=== PATIENT | female | born 1990 | race African-American/Black ===

== ENCOUNTER 2019-10-12 05:09 | Inpatient (IN) ==
[2019-10-12] MEDS ORDERED: ONDANSETRON 4 MG/2 ML VIAL IV PRN ×2 (05:21→08:49)
[2019-10-12] MEDS ORDERED: CITRIC ACID/SODIUM CITRATE 30 ML UDCUP PO ONE (05:24)
[2019-10-12] MEDS ORDERED: FAMOTIDINE 20 MG/2 ML VIAL IV ONE (05:24)
[2019-10-12] MEDS ORDERED: ceFAZolin 2,000 MG in PREMIX 1 EACH IV ONE (05:24)
[2019-10-12] MEDS: LACTATED RINGERS 1,000 ML IV PRN ×3 (05:40→13:24)
[2019-10-12 05:59] LABS: Basophils # 0.1 10*3/uL (0.0-0.2); Basophils % 0.6 % (0.0-0.8); Eosinophils # 0.2 10*3/uL (0.0-0.87); Eosinophils % 2.5 % (0.00-10.9); Hematocrit 29.1 VOL% (35.7-47.0); Hemoglobin 8.6 GM/DL (12.0-16.0); Immature Granulocytes Absolute 0.18 #; Lymphocytes # 3.2 10*3/uL (1.4-4.0); Lymphocytes % 35.7 % (21.3-54.2); Mean Corpuscular HGB Conc 29.6 GM/DL (32-36); Mean Corpuscular Volume 75.8 FL (87-102); Mean Platelet Volume 10.7 FL (9.6-12.0); Neutrophils % 50.2 % (38.7-73.9); Platelet Count 283 T/CUMM (130-400); Red Blood Count 3.84 MC/CUMM (3.8-5.5); Red Cell Distribution Width 18.2 % (9.3-17.3); White Blood Count 8.9 T/CUMM (4-12)
[2019-10-12 06:05] LABS: Albumin 2.5 G/DL (3.4-5.0); Bilirubin,Total 0.5 MG/DL (0.2-1.0); Calcium 9.1 MG/DL (8.5-10.1); Osmolality,Calculated 270.7 MOS/KG (273-304); Total Protein 7.6 G/DL (6.4-8.3)
[2019-10-12 06:09] LABS: Hypochromasia 2+; Platelet Estimate Adequate
[2019-10-12] MEDS ORDERED: miSOPROStoL 200 MCG TABLET ONE (07:18)
[2019-10-12] MEDS ORDERED: METHYLERGONOVINE 0.2 MG/1 ML AMP ONE (07:19)
[2019-10-12] MEDS ORDERED: OXYTOCIN/LR 20 UNIT/1,000 ML BAG IV ONE ×3 (07:19→08:49)
[2019-10-12] MEDS ORDERED: CARBOPROST TROMETHAMINE 250 MCG/ML AMP IM ONE (07:19)
[2019-10-12] MEDS ORDERED: ROPIVACAINE 0.5% 30 ML VIAL ONE (07:35)
[2019-10-12] MEDS ORDERED: PHENYLEPHRINE 1 MG/10 ML SYRINGE IV ONE (07:35)
[2019-10-12] MEDS ORDERED: MORPHINE 10 MG/10 ML VIAL ONE (07:35)
[2019-10-12] MEDS ORDERED: BUPIVACAINE SPINAL 0.75% 2 ML AMP SPINAL ONE (07:36)
[2019-10-12 08:37] LABS: Cord Arterial Blood HCO3 21.3 MMOL/L; Cord Venous Blood HCO3 21.8 MMOL/L; Cord Venous Blood PO2 37.4 MMHG
[2019-10-12 08:46] LABS: Apearance,Urine CLEAR (Clear); Bilirubin,Urine Negative (Negative); Blood, Urine Negative (Negative); Glucose,Urine (UA) Negative (Negative); Ketones,Urine Negative (Negative); Mucus,Urine Occasional /LPF (Occasional); Nitrite,Urine Negative (Negative); Protein,Urine Negative; Urine Color Straw (Yellow); Urine Specific Gravity 1.005 (1.001-1.035); Urine Urobilinogen < 2.0 EU/DL (0.2-1.0); WBC,Urine <1 /HPF (0-6)
[2019-10-12] MEDS ORDERED: DIPH/TET/ACEL PERT BOOSTER VACCINE 0.5 ML VIAL IM ONE (08:49)
[2019-10-12] MEDS ORDERED: RHO(D) IMMUNE GLOBULIN 300 MCG SYRINGE IM ONE (08:49)
[2019-10-12] MEDS ORDERED: LANOLIN 50% CREAM 0.3 OZ TUBE TOP PRN (08:49)
[2019-10-12] MEDS ORDERED: ACETAMINOPHEN 325 MG TABLET PO PRN (08:49)
[2019-10-12] MEDS ORDERED: HYDROCORTISONE 2.5% RECTAL CREAM 30 GM TUBE TOP PRN (08:49)
[2019-10-12] MEDS ORDERED: WITCH HAZEL PADS 100/JAR TOP PRN (08:49)
[2019-10-12] MEDS ORDERED: BISACODYL 10 MG SUPP RECTAL PRN (08:49)
[2019-10-12] MEDS ORDERED: oxyCODONE/ACETAMINOPHEN 5-325 MG TABLET PO PRN (08:49)
[2019-10-12] MEDS ORDERED: BENZOCAINE 20%/MENTHOL 0.5% SPRAY 56 GM CAN TOP PRN (08:49)
[2019-10-12] MEDS ORDERED: MEASLES/MUMPS/RUBELLA VACCINE 0.5 ML VIAL SUBCUT ONE (08:49)
[2019-10-12] MEDS ORDERED: fentaNYL 100 MCG/2 ML VIAL ONE (10:07)
[2019-10-12] MEDS ORDERED: DEXAMETHASONE 4 MG/1 ML VIAL ONE (10:12)
[2019-10-12] MEDS: DOCUSATE SODIUM 100 MG CAPSULE PO SCH (11:49)
[2019-10-12] MEDS: ACETAMINOPHEN 500 MG TABLET PO SCH ×3 (12:05→23:37)
[2019-10-12] MEDS: KETOROLAC 30 MG/1 ML VIAL IV SCH ×3 (12:06→23:38)
[2019-10-12] MEDS ORDERED: SODIUM CHLORIDE 0.9% 100 ML IV ONE (15:30)
[2019-10-12] MEDS: ceFAZolin 1,000 MG in SYRINGE 1 EACH IV SCH ×2 (15:45→23:40)
[2019-10-13] MEDS: DOCUSATE SODIUM 100 MG CAPSULE PO SCH ×3 (01:09→20:27)
[2019-10-13 05:41] LABS: Basophils % 0.1 % (0.0-0.8); Eosinophils % 0.1 % (0.00-10.9); Hematocrit 22.5 VOL% (35.7-47.0); Hemoglobin 6.8 GM/DL (12.0-16.0); Immature Granulocytes % 1.4 %; Immature Granulocytes Absolute 0.29 #; Lymphocytes # 2.8 10*3/uL (1.4-4.0); Lymphocytes % 13.9 % (21.3-54.2); Mean Corpuscular HGB Conc 30.2 GM/DL (32-36); Mean Corpuscular Volume 74.3 FL (87-102); Mean Platelet Volume 10.6 FL (9.6-12.0); Monocytes % 10.3 % (1.7-12.7); Neutrophils % 74.2 % (38.7-73.9); Platelet Count 241 T/CUMM (130-400); Red Blood Count 3.03 MC/CUMM (3.8-5.5); Red Cell Distribution Width 17.9 % (9.3-17.3); White Blood Count 20.1 T/CUMM (4-12)
[2019-10-13] MEDS: KETOROLAC 30 MG/1 ML VIAL IV SCH (06:07)
[2019-10-13] MEDS: ACETAMINOPHEN 500 MG TABLET PO SCH (06:08)
[2019-10-13 06:11] LABS: Hypochromasia 2+; Lymphocytes 14 % (20-55); Microcytosis 1+; Platelet Estimate Adequate; Segmented Neutrophils 78 % (50-85); Total Cells Counted 100
[2019-10-13] MEDS: IRON (CARBONYL)/VIT C/B12/FA TABLET PO SCH (10:24)
[2019-10-13] MEDS: IBUPROFEN 800 MG TABLET PO PRN ×2 (10:25→17:19)
[2019-10-13] MEDS: oxyCODONE/ACETAMINOPHEN 5-325 MG TABLET PO PRN (20:27)
[2019-10-14] MEDS ORDERED: MAGNESIUM HYDROXIDE SUSP 30 ML UDCUP PO PRN (04:18)
[2019-10-14] MEDS: oxyCODONE/ACETAMINOPHEN 5-325 MG TABLET PO PRN (04:27)
[2019-10-14 08:16] VITALS: BP 99/52
[2019-10-14] MEDS: DOCUSATE SODIUM 100 MG CAPSULE PO SCH (08:38)
[2019-10-14] MEDS: IRON (CARBONYL)/VIT C/B12/FA TABLET PO SCH (08:38)
[2019-10-14] MEDS: IBUPROFEN 800 MG TABLET PO PRN (08:40)
== END 2019-10-14 13:45 | disposition home or self-care (01) | DRG 540 ==
LOC: N.LDOUT 05:09 → N.LD 05:11 → N.OB 13:31
PROVIDERS: ADMIT Specialist; ATTEND Specialist
PROC: LDCSECT (ICD-10-PCS; 2019-10-12 08:00)

== ENCOUNTER 2020-10-05 21:24 | Inpatient (IN) ==
[2020-10-05] MEDS ORDERED: LACTATED RINGERS 1,000 ML IV ONE (22:11)
[2020-10-05] MEDS ORDERED: MELATONIN 3 MG TABLET PO PRN (22:49)
[2020-10-05] MEDS ORDERED: AZITHROMYCIN INJ 500 MG in SODIUM CHLORIDE 0.9% 250 ML IV ONE (22:49)
[2020-10-05] MEDS ORDERED: ONDANSETRON 4 MG/2 ML VIAL IV PRN (23:41)
[2020-10-06 00:11] LABS: Basophils # 0.1 10*3/uL (0.0-0.2); Eosinophils # 0.1 10*3/uL (0.0-0.87); Eosinophils % 0.8 % (0.00-10.9); Hematocrit 40.4 VOL% (35.7-47.0); Hemoglobin 11.7 GM/DL (12.0-16.0); Immature Granulocytes Absolute 0.94 #; Lymphocytes # 2.2 10*3/uL (1.4-4.0); Lymphocytes % 16.4 % (21.3-54.2); Mean Corpuscular Volume 75.2 FL (87-102); Mean Platelet Volume 11.1 FL (9.6-12.0); Monocytes % 6.7 % (1.7-12.7); NRBC # 0.34 10*3/uL; Neutrophils % 68.1 % (38.7-73.9); Platelet Count 229 T/CUMM (130-400); Red Blood Count 5.37 MC/CUMM (3.8-5.5); Red Cell Distribution Width 20.3 % (9.3-17.3); White Blood Count 13.5 T/CUMM (4-12)
[2020-10-06 00:15] LABS: Albumin 2.3 G/DL (3.4-5.0); Bilirubin,Total 1.6 MG/DL (0.20-1.00); Calcium 9.1 MG/DL (8.5-10.1); Ferritin 162.2 ng/ml (8-252); Osmolality,Calculated 268.1 MOS/KG (273-304); Total Protein 8.5 G/DL (6.4-8.2)
[2020-10-06] MEDS: HYDROmorphone 2 MG/1 ML VIAL IV PRN ×4 (00:22→23:08)
[2020-10-06] MEDS: LACTATED RINGERS 1,000 ML IV PRN (00:28)
[2020-10-06 00:33] LABS: INR 1.1; PT Patient Result 12.6 SECS (10.5-12.0)
[2020-10-06] MEDS ORDERED: HEPARIN DRIP 25,000 UNITS/500 ML PREMIX IV SCH (01:00)
[2020-10-06 03:26] LABS: Band Neutrophils 3 % (0-10); Lymphocytes 13 % (20-55); Metamyelocytes 1 %; Segmented Neutrophils 81 % (50-85); Total Cells Counted 100
[2020-10-06 03:27] LABS: Hypochromasia 1+; Microcytosis 2+; Polychromasia 1+
[2020-10-06 03:28] LABS: Platelet Estimate Normal
[2020-10-06 03:29] LABS: Tear Drop Cells Few
[2020-10-06] MEDS ORDERED: LIDOCAINE 2% 5 ML VIAL ONE (07:00)
[2020-10-06] MEDS ORDERED: ROPIVACAINE 0.5% 30 ML VIAL ONE (07:00)
[2020-10-06] MEDS ORDERED: FAMOTIDINE 20 MG/2 ML VIAL IV ONE (07:00)
[2020-10-06] MEDS ORDERED: ROCURONIUM 50 MG/5 ML VIAL IV ONE (07:00)
[2020-10-06] MEDS ORDERED: ceFAZolin 2,000 MG/50 ML DUPLEX IV ONE (07:00)
[2020-10-06] MEDS ORDERED: SUCCINYLCHOLINE 200 MG/10 ML VIAL ONE (07:00)
[2020-10-06] MEDS ORDERED: MIDAZOLAM 2 MG/2 ML VIAL ONE (07:00)
[2020-10-06] MEDS ORDERED: ONDANSETRON 4 MG/2 ML VIAL ONE (07:00)
[2020-10-06] MEDS ORDERED: CITRIC ACID/SODIUM CITRATE 30 ML UDCUP PO ONE (07:00)
[2020-10-06] MEDS ORDERED: propofoL 200 MG/20 ML VIAL IV ONE (07:00)
[2020-10-06] MEDS ORDERED: fentaNYL 250 MCG/5 ML VIAL ONE (07:01)
[2020-10-06 07:56] LABS: Basophils # 0.1 10*3/uL (0.0-0.2); Basophils % 0.4 % (0.0-0.8); Eosinophils # 0.2 10*3/uL (0.0-0.87); Eosinophils % 1.2 % (0.00-10.9); Hematocrit 30.8 VOL% (35.7-47.0); Immature Granulocytes % 9.3 %; Immature Granulocytes Absolute 1.26 #; Lymphocytes # 1.8 10*3/uL (1.4-4.0); Lymphocytes % 13.5 % (21.3-54.2); Mean Corpuscular HGB Conc 29.2 GM/DL (32-36); Mean Corpuscular Volume 75.3 FL (87-102); NRBC # 0.26 10*3/uL; Neutrophils % 68.6 % (38.7-73.9); Red Cell Distribution Width 19.2 % (9.3-17.3); White Blood Count 13.6 T/CUMM (4-12)
[2020-10-06 07:57] LABS: Platelet Count 123 T/CUMM (130-400); Red Blood Count 4.09 MC/CUMM (3.8-5.5)
[2020-10-06] MEDS ORDERED: LACTATED RINGERS 1,000 ML IV ONE (07:59)
[2020-10-06 08:08] LABS: INR 1.2; PT Patient Result 13.3 SECS (10.5-12.0)
[2020-10-06 08:15] LABS: Band Neutrophils 2 % (0-10); Lymphocytes 11 % (20-55); Myelocytes 1 %; Nucleated Red Blood Cells 3 (0-5); Segmented Neutrophils 82 % (50-85); Total Cells Counted 100
[2020-10-06 08:16] LABS: Hypochromasia 1+; Microcytosis 1+; Platelet Estimate Normal
[2020-10-06] MEDS ORDERED: OXYTOCIN/LR 20 UNIT/1,000 ML BAG IV ONE ×2 (08:26→10:00)
[2020-10-06 08:42] LABS: ABG Base Excess -3.1 MMOL/L (-2.5-2.5); ABG HCO3 20.4 MMOL/L (20-26); ABG Oxygen Saturation 97.1 % (95-100); ABG PCO2 30.2 MM HG (35-48); ABG PH 7.447 (7.35-7.45); ABG PO2 104.4 MM HG (80-95); ABG TCO2 21.3 MMOL/L (23-27); Glucose Heart Surgery 77 MG/DL (74-106); Hemoglobin Heart Surgery 8.5 G/DL (12.0-16.0); Potassium Heart/CVR 4.1 MMOL/L (3.5-5.1)
[2020-10-06] MEDS ORDERED: CHOLECALCIFEROL 1,000 UNIT TABLET PO SCH (09:00)
[2020-10-06] MEDS ORDERED: ZINC GLUCONATE 50 MG TABLET PO SCH (09:00)
[2020-10-06] MEDS ORDERED: DEXAMETHASONE 4 MG/1 ML VIAL IV SCH (09:00)
[2020-10-06] MEDS ORDERED: ONDANSETRON 4 MG/2 ML VIAL IV PRN (09:06)
[2020-10-06] MEDS ORDERED: SIMETHICONE CHEW 80 MG TABLET PO PRN (09:06)
[2020-10-06] MEDS ORDERED: RHO(D) IMMUNE GLOBULIN 300 MCG SYRINGE IM ONE (09:06)
[2020-10-06] MEDS ORDERED: MAGNESIUM HYDROXIDE SUSP 30 ML UDCUP PO PRN (09:06)
[2020-10-06] MEDS: FAMOTIDINE 20 MG TABLET PO SCH ×2 (09:59→21:14)
[2020-10-06] MEDS: AZITHROMYCIN 250 MG TABLET PO SCH (10:00)
[2020-10-06] MEDS: ASCORBIC ACID 500 MG TABLET PO SCH ×2 (10:00→21:14)
[2020-10-06] MEDS: DEXAMETHASONE 4 MG/1 ML VIAL IV SCH ×3 (10:01→21:10)
[2020-10-06] MEDS: LACTATED RINGERS 1,000 ML IV SCH ×2 (10:01→17:31)
[2020-10-06 10:36] LABS: ABG Base Excess -2.4 MMOL/L (-2.5-2.5); ABG HCO3 23.7 MMOL/L (20-26); ABG Oxygen Saturation 96.4 % (95-100); ABG PCO2 47.7 MM HG (35-48); ABG PH 7.315 (7.35-7.45); ABG PO2 105.2 MM HG (80-95); ABG TCO2 25.2 MMOL/L (23-27)
[2020-10-06 12:33] LABS: Basophils # 0.1 10*3/uL (0.0-0.2); Basophils % 0.2 % (0.0-0.8); Eosinophils # 0.1 10*3/uL (0.0-0.87); Eosinophils % 0.3 % (0.00-10.9); Hemoglobin 7.4 GM/DL (12.0-16.0); Immature Granulocytes % 7.9 %; Immature Granulocytes Absolute 2.05 #; Lymphocytes # 1.3 10*3/uL (1.4-4.0); Lymphocytes % 5.1 % (21.3-54.2); Mean Corpuscular HGB Conc 28.5 GM/DL (32-36); Mean Corpuscular Volume 78.3 FL (87-102); Mean Platelet Volume 9.4 FL (9.6-12.0); Monocytes % 2.9 % (1.7-12.7); NRBC # 0.14 10*3/uL; Neutrophils % 83.6 % (38.7-73.9); Red Blood Count 3.32 MC/CUMM (3.8-5.5)
[2020-10-06 12:34] LABS: Platelet Count 88 T/CUMM (130-400); White Blood Count 25.9 T/CUMM (4-12)
[2020-10-06] MEDS: IVERMECTIN 3 MG TABLET PO SCH (12:39)
[2020-10-06] MEDS: CETIRIZINE 10 MG TABLET PO SCH (12:40)
[2020-10-06 12:53] LABS: Anisocytosis 1+; Band Neutrophils 27 % (0-10); Lymphocytes 4 % (20-55); Metamyelocytes 1 %; Myelocytes 3 %; Nucleated Red Blood Cells 1 (0-5); Platelet Estimate Decreased; Poikilocytosis Slight; Segmented Neutrophils 62 % (50-85); Smudge Cells Few; Total Cells Counted 100
[2020-10-06] MEDS ORDERED: OXYTOCIN/D5LR 20 UNIT/1,000 ML PREMIX IV ONE (13:08)
[2020-10-06] MEDS ORDERED: OXYTOCIN IV ONE (14:00)
[2020-10-06] MEDS ORDERED: DEXTROSE 5% IV ONE (14:00)
[2020-10-06] MEDS ORDERED: LACTATED RINGERS IV ONE (14:00)
[2020-10-06] MEDS: HEPARIN DRIP 25,000 UNITS/500 ML PREMIX IV SCH (14:07)
[2020-10-06] MEDS ORDERED: FUROSEMIDE 40 MG/4 ML VIAL IV ONE (14:23)
[2020-10-06] MEDS: ALBUTEROL INHALER 18 GM INH SCH ×2 (16:31→21:14)
[2020-10-06] MEDS: DOCUSATE SODIUM 100 MG CAPSULE PO SCH (21:14)
[2020-10-06] MEDS: MELATONIN 3 MG TABLET PO SCH (21:14)
[2020-10-06 23:15] LABS: Basophils % 0.1 % (0.0-0.8); Eosinophils % 0.1 % (0.00-10.9); Hematocrit 27.6 VOL% (35.7-47.0); Hemoglobin 8.3 GM/DL (12.0-16.0); Immature Granulocytes % 8.1 %; Immature Granulocytes Absolute 1.62 #; Lymphocytes # 1.4 10*3/uL (1.4-4.0); Lymphocytes % 6.8 % (21.3-54.2); Mean Corpuscular HGB Conc 30.1 GM/DL (32-36); Mean Corpuscular Volume 78.4 FL (87-102); NRBC # 0.05 10*3/uL; Neutrophils % 80.9 % (38.7-73.9); Red Blood Count 3.52 MC/CUMM (3.8-5.5); Red Cell Distribution Width 19.1 % (9.3-17.3); White Blood Count 20.1 T/CUMM (4-12)
[2020-10-06 23:17] LABS: Platelet Count 64 T/CUMM (130-400)
[2020-10-06 23:23] LABS: INR 1.2; PT Patient Result 13.7 SECS (10.5-12.0); Partial Thromboplastin Time 34.7 SECS (23.9-33.8)
[2020-10-06 23:53] LABS: Band Neutrophils 1 % (0-10); Lymphocytes 6 % (20-55); Segmented Neutrophils 89 % (50-85)
[2020-10-06 23:54] LABS: Hypochromasia 1+; Platelet Estimate Decreased
[2020-10-06 23:55] LABS: Total Cells Counted 100
[2020-10-07] MEDS: LACTATED RINGERS 1,000 ML IV PRN
[2020-10-07] MEDS: ALBUTEROL INHALER 18 GM INH SCH ×4 (01:32→21:49)
[2020-10-07] MEDS: LACTATED RINGERS 1,000 ML IV SCH ×3 (01:33→18:12)
[2020-10-07] MEDS: DEXAMETHASONE 4 MG/1 ML VIAL IV SCH ×4 (03:50→22:38)
[2020-10-07] MEDS: HYDROmorphone 2 MG/1 ML VIAL IV PRN (05:48)
[2020-10-07 05:53] LABS: ABG Base Excess 1.4 MMOL/L (-2.5-2.5); ABG HCO3 26.4 MMOL/L (20-26); ABG Oxygen Saturation 95.1 % (95-100); ABG PCO2 43.6 MM HG (35-48); ABG PO2 82.9 MM HG (80-95); ABG TCO2 27.7 MMOL/L (23-27)
[2020-10-07 06:31] LABS: Basophils # 0.1 10*3/uL (0.0-0.2); Basophils % 0.4 % (0.0-0.8); Hemoglobin 8.7 GM/DL (12.0-16.0); Immature Granulocytes % 8.5 %; Lymphocytes # 1.6 10*3/uL (1.4-4.0); Lymphocytes % 6.5 % (21.3-54.2); Mean Corpuscular HGB Conc 31.1 GM/DL (32-36); Mean Corpuscular Volume 78.4 FL (87-102); Monocytes % 5.5 % (1.7-12.7); NRBC # 0.04 10*3/uL; Neutrophils % 79.1 % (38.7-73.9); Red Blood Count 3.57 MC/CUMM (3.8-5.5); Red Cell Distribution Width 19.3 % (9.3-17.3); White Blood Count 24.8 T/CUMM (4-12)
[2020-10-07 07:16] LABS: Platelet Count 35 T/CUMM (130-400)
[2020-10-07 08:56] LABS: Calcium 8.1 MG/DL (8.5-10.1); Osmolality,Calculated 284.1 MOS/KG (273-304); Potassium 4.4 MMOL/L (3.5-5.1)
[2020-10-07 09:26] LABS: Hypochromasia 2+; Microcytosis 2+; Platelet Estimate Decreased
[2020-10-07] MEDS: FAMOTIDINE 20 MG TABLET PO SCH ×2 (09:59→21:36)
[2020-10-07] MEDS: MULTIVITAMIN (PRENATAL) TABLET PO SCH (09:59)
[2020-10-07] MEDS: ZINC GLUCONATE 50 MG TABLET PO SCH (09:59)
[2020-10-07] MEDS: DOCUSATE SODIUM 100 MG CAPSULE PO SCH ×2 (09:59→21:36)
[2020-10-07] MEDS: ASCORBIC ACID 500 MG TABLET PO SCH ×2 (09:59→21:36)
[2020-10-07] MEDS: CHOLECALCIFEROL 5,000 UNIT TABLET PO SCH (09:59)
[2020-10-07] MEDS: AZITHROMYCIN 250 MG TABLET PO SCH (10:00)
[2020-10-07] MEDS: CETIRIZINE 10 MG TABLET PO SCH (10:00)
[2020-10-07 11:17] LABS: Basophils # 0.1 10*3/uL (0.0-0.2); Basophils % 0.2 % (0.0-0.8); Hemoglobin 7.9 GM/DL (12.0-16.0); Immature Granulocytes % 9.1 %; Immature Granulocytes Absolute 2.25 #; Lymphocytes # 1.5 10*3/uL (1.4-4.0); Lymphocytes % 5.9 % (21.3-54.2); Mean Corpuscular HGB Conc 30.4 GM/DL (32-36); Mean Corpuscular Volume 78.8 FL (87-102); Monocytes % 5.8 % (1.7-12.7); NRBC # 0.03 10*3/uL; Platelet Count 45 T/CUMM (130-400); Red Cell Distribution Width 19.4 % (9.3-17.3); White Blood Count 24.7 T/CUMM (4-12)
[2020-10-07 11:35] LABS: INR 1.4; PT Patient Result 15.8 SECS (10.5-12.0); Partial Thromboplastin Time 34.4 SECS (23.9-33.8)
[2020-10-07 11:41] LABS: Albumin 1.6 G/DL (3.4-5.0); Bilirubin,Total 1.1 MG/DL (0.20-1.00); Calcium 8.3 MG/DL (8.5-10.1); Osmolality,Calculated 283.1 MOS/KG (273-304); Potassium 4.3 MMOL/L (3.5-5.1); Total Protein 5.4 G/DL (6.4-8.2)
[2020-10-07 12:11] LABS: HIV Antigen/Antibody Result Nonreactive (Nonreactive)
[2020-10-07] MEDS: IVERMECTIN 3 MG TABLET PO SCH ×2 (12:37→15:50)
[2020-10-07] MEDS ORDERED: MIDAZOLAM 2 MG/2 ML VIAL ONE (13:48)
[2020-10-07] MEDS: HEPARIN DRIP 25,000 UNITS/500 ML PREMIX IV SCH (14:12)
[2020-10-07 15:51] LABS: ABG Base Excess 2.9 MMOL/L (-2.5-2.5); ABG HCO3 26.5 MMOL/L (20-26); ABG Oxygen Saturation 94.1 % (95-100); ABG PCO2 36.4 MM HG (35-48); ABG PO2 73.8 MM HG (80-95); ABG TCO2 27.6 MMOL/L (23-27)
[2020-10-07] MEDS: PIPERACILLIN/TAZOBACTAM 3,375 MG in SODIUM CHLORIDE 0.9% 100 ML IV SCH (18:12)
[2020-10-07 18:27] LABS: Basophils # 0.2 10*3/uL (0.0-0.2); Basophils % 0.5 % (0.0-0.8); Hematocrit 29.8 VOL% (35.7-47.0); Hemoglobin 8.8 GM/DL (12.0-16.0); Immature Granulocytes % 8.4 %; Immature Granulocytes Absolute 2.49 #; Lymphocytes # 1.6 10*3/uL (1.4-4.0); Lymphocytes % 5.4 % (21.3-54.2); Mean Corpuscular HGB Conc 29.5 GM/DL (32-36); Mean Corpuscular Volume 80.5 FL (87-102); Monocytes % 5.2 % (1.7-12.7); NRBC # 0.06 10*3/uL; Neutrophils % 80.5 % (38.7-73.9); Platelet Count 59 T/CUMM (130-400); Red Cell Distribution Width 20.5 % (9.3-17.3); White Blood Count 29.6 T/CUMM (4-12)
[2020-10-07 18:49] LABS: INR 1.3; PT Patient Result 14.6 SECS (10.5-12.0); Partial Thromboplastin Time 32.2 SECS (23.9-33.8)
[2020-10-07] MEDS: MELATONIN 3 MG TABLET PO SCH (21:36)
[2020-10-08 01:40] LABS: Band Neutrophils 5 % (0-10); Hypochromasia 1+; Metamyelocytes 2 %; Microcytosis 1+; Nucleated Red Blood Cells 1 (0-5); Platelet Estimate Decreased; Polychromasia Few; Segmented Neutrophils 89 % (50-85); Total Cells Counted 100
[2020-10-08] MEDS: HYDROmorphone 2 MG/1 ML VIAL IV PRN (01:40)
[2020-10-08 01:41] LABS: Schistocytes Few
[2020-10-08 01:42] LABS: Anisocytosis 2+; Stomatocytes Slight
[2020-10-08 01:50] LABS: Basophils # 0.1 10*3/uL (0.0-0.2); Basophils % 0.2 % (0.0-0.8); Hematocrit 28.2 VOL% (35.7-47.0); Hemoglobin 8.5 GM/DL (12.0-16.0); Immature Granulocytes % 8.1 %; Immature Granulocytes Absolute 2.36 #; Lymphocytes # 1.3 10*3/uL (1.4-4.0); Lymphocytes % 4.4 % (21.3-54.2); Mean Corpuscular HGB Conc 30.1 GM/DL (32-36); Mean Corpuscular Volume 80.3 FL (87-102); Monocytes % 4.6 % (1.7-12.7); NRBC # 0.05 10*3/uL; Neutrophils % 82.7 % (38.7-73.9); Platelet Count 80 T/CUMM (130-400); Red Blood Count 3.51 MC/CUMM (3.8-5.5); Red Cell Distribution Width 20.7 % (9.3-17.3); White Blood Count 29.1 T/CUMM (4-12)
[2020-10-08 02:08] LABS: INR 1.3; PT Patient Result 14.6 SECS (10.5-12.0); Partial Thromboplastin Time 34.2 SECS (23.9-33.8)
[2020-10-08] MEDS: ALBUTEROL INHALER 18 GM INH SCH ×4 (02:26→20:58)
[2020-10-08] MEDS: PIPERACILLIN/TAZOBACTAM 3,375 MG in SODIUM CHLORIDE 0.9% 100 ML IV SCH ×3 (02:26→17:07)
[2020-10-08] MEDS: DEXAMETHASONE 4 MG/1 ML VIAL IV SCH ×3 (03:00→16:28)
[2020-10-08] MEDS: LACTATED RINGERS 1,000 ML IV SCH ×2 (03:05→09:43)
[2020-10-08 03:29] LABS: Band Neutrophils 3 % (0-10); Hypochromasia 1+; Microcytosis 1+; Platelet Estimate Decreased; Segmented Neutrophils 96 % (50-85); Total Cells Counted 100
[2020-10-08 03:30] LABS: Anisocytosis 1+; Polychromasia 1+
[2020-10-08 03:31] LABS: Stomatocytes Slight
[2020-10-08 03:34] LABS: Schistocytes Few
[2020-10-08 04:39] LABS: ABG Base Excess 2.9 MMOL/L (-2.5-2.5); ABG HCO3 27.3 MMOL/L (20-26); ABG Oxygen Saturation 96.1 % (95-100); ABG PCO2 41.2 MM HG (35-48); ABG PH 7.439 (7.35-7.45); ABG PO2 92.7 MM HG (80-95); ABG TCO2 28.6 MMOL/L (23-27)
[2020-10-08 06:49] LABS: Basophils # 0.1 10*3/uL (0.0-0.2); Basophils % 0.2 % (0.0-0.8); Hematocrit 27.6 VOL% (35.7-47.0); Hemoglobin 8.1 GM/DL (12.0-16.0); Immature Granulocytes % 7.3 %; Immature Granulocytes Absolute 1.97 #; Lymphocytes # 1.2 10*3/uL (1.4-4.0); Lymphocytes % 4.3 % (21.3-54.2); Mean Corpuscular HGB Conc 29.3 GM/DL (32-36); Mean Corpuscular Volume 80.7 FL (87-102); Monocytes % 4.1 % (1.7-12.7); NRBC # 0.05 10*3/uL; Neutrophils % 84.1 % (38.7-73.9); Platelet Count 74 T/CUMM (130-400); Red Blood Count 3.42 MC/CUMM (3.8-5.5); Red Cell Distribution Width 21.2 % (9.3-17.3); White Blood Count 26.9 T/CUMM (4-12)
[2020-10-08 07:04] LABS: Albumin 1.6 G/DL (3.4-5.0); Bilirubin,Total 2.1 MG/DL (0.20-1.00); Calcium 8.3 MG/DL (8.5-10.1); Ferritin 254.5 ng/ml (8-252); Osmolality,Calculated 281.3 MOS/KG (273-304); Potassium 4.4 MMOL/L (3.5-5.1); Total Protein 5.4 G/DL (6.4-8.2)
[2020-10-08 08:24] LABS: INR 1.3; PT Patient Result 14.6 SECS (10.5-12.0); Partial Thromboplastin Time 32.9 SECS (23.9-33.8)
[2020-10-08] MEDS: MULTIVITAMIN (PRENATAL) TABLET PO SCH (08:38)
[2020-10-08] MEDS: DOCUSATE SODIUM 100 MG CAPSULE PO SCH ×2 (08:38→20:58)
[2020-10-08] MEDS: FAMOTIDINE 20 MG TABLET PO SCH ×2 (08:38→20:58)
[2020-10-08] MEDS: IVERMECTIN 3 MG TABLET PO SCH (08:39)
[2020-10-08] MEDS: CETIRIZINE 10 MG TABLET PO SCH (08:39)
[2020-10-08] MEDS: AZITHROMYCIN 250 MG TABLET PO SCH (08:39)
[2020-10-08] MEDS: ZINC GLUCONATE 50 MG TABLET PO SCH (08:39)
[2020-10-08] MEDS: ASCORBIC ACID 500 MG TABLET PO SCH ×2 (08:39→20:58)
[2020-10-08] MEDS: CHOLECALCIFEROL 5,000 UNIT TABLET PO SCH (08:39)
[2020-10-08] MEDS ORDERED: MIDAZOLAM 2 MG/2 ML VIAL IV ONE (09:21)
[2020-10-08] MEDS ORDERED: FUROSEMIDE 40 MG/4 ML VIAL IV ONE (09:22)
[2020-10-08] MEDS: DEXMEDETOMIDINE 200 MCG in SODIUM CHLORIDE 0.9% 48 ML IV PRN ×3 (10:09→22:30)
[2020-10-08 12:08] LABS: Band Neutrophils 7 % (0-10); Eosinophils 1 % (0-10); Lymphocytes 1 % (20-55); Segmented Neutrophils 88 % (50-85); Total Cells Counted 100
[2020-10-08 12:09] LABS: Hypochromasia 4+; Microcytosis 3+; Platelet Estimate Adequate
[2020-10-08 13:07] LABS: INR 1.3; PT Patient Result 14.2 SECS (10.5-12.0); Partial Thromboplastin Time 30.9 SECS (23.9-33.8)
[2020-10-09] MEDS: ALBUTEROL INHALER 18 GM INH SCH ×3 (00:46→13:53)
[2020-10-09] MEDS: PIPERACILLIN/TAZOBACTAM 3,375 MG in SODIUM CHLORIDE 0.9% 100 ML IV SCH ×2 (03:02→11:07)
[2020-10-09] MEDS: HYDROmorphone 2 MG/1 ML VIAL IV PRN (04:46)
[2020-10-09] MEDS: DEXMEDETOMIDINE 200 MCG in SODIUM CHLORIDE 0.9% 48 ML IV PRN (05:00)
[2020-10-09 06:31] LABS: ABG Base Excess 6.4 MMOL/L (-2.5-2.5); ABG HCO3 30.1 MMOL/L (20-26); ABG Oxygen Saturation 85.3 % (95-100); ABG PCO2 38.8 MM HG (35-48); ABG PH 7.498 (7.35-7.45); ABG PO2 53.2 MM HG (80-95)
[2020-10-09] MEDS ORDERED: LORazepam 2 MG/1 ML VIAL IV ONE ×2 (06:44→07:04)
[2020-10-09] MEDS ORDERED: LORazepam 2 MG/1 ML VIAL ONE ×2 (06:46→07:05)
[2020-10-09] MEDS ORDERED: ETOMIDATE 20 MG/10 ML VIAL IV ONE ×2 (07:22→07:33)
[2020-10-09] MEDS ORDERED: SUCCINYLCHOLINE 200 MG/10 ML VIAL ONE (07:23)
[2020-10-09] MEDS ORDERED: SUCCINYLCHOLINE 200 MG/10 ML VIAL IV ONE (07:34)
[2020-10-09] MEDS ORDERED: ROCURONIUM 100 MG/10 ML VIAL IV ONE ×2 (07:50→07:52)
[2020-10-09] MEDS ORDERED: SODIUM CHLORIDE 0.9% 1,000 ML IV ONE (07:57)
[2020-10-09] MEDS ORDERED: NOREPINEPHRINE 4 MG/4 ML VIAL IV ONE ×2 (07:58→12:12)
[2020-10-09] MEDS: NOREPINEPHRINE 8 MG in SODIUM CHLORIDE 0.9% 242 ML IV PRN ×4 (08:03→17:40)
[2020-10-09 08:41] LABS: ABG Base Excess 0.2 MMOL/L (-2.5-2.5); ABG Oxygen Saturation 86.2 % (95-100); ABG PCO2 47.7 MM HG (35-48); ABG PH 7.354 (7.35-7.45); ABG PO2 62.3 MM HG (80-95); ABG TCO2 27.4 MMOL/L (23-27)
[2020-10-09 08:45] LABS: Basophils # 0.1 10*3/uL (0.0-0.2); Basophils % 0.2 % (0.0-0.8); Eosinophils # 0.1 10*3/uL (0.0-0.87); Eosinophils % 0.3 % (0.00-10.9); Hematocrit 26.8 VOL% (35.7-47.0); Hemoglobin 7.8 GM/DL (12.0-16.0); Immature Granulocytes % 6.3 %; Immature Granulocytes Absolute 2.23 #; Lymphocytes # 2.5 10*3/uL (1.4-4.0); Mean Corpuscular HGB Conc 29.1 GM/DL (32-36); Mean Corpuscular Volume 82.2 FL (87-102); Monocytes % 2.7 % (1.7-12.7); NRBC # 0.14 10*3/uL; Neutrophils % 83.5 % (38.7-73.9); Platelet Count 85 T/CUMM (130-400); Red Blood Count 3.26 MC/CUMM (3.8-5.5); Red Cell Distribution Width 21.6 % (9.3-17.3); White Blood Count 35.4 T/CUMM (4-12)
[2020-10-09 08:51] LABS: Amorphous Crystals,Urine Many /HPF (Few); Bilirubin,Urine Negative (Negative); Blood, Urine Moderate mg/dL (Negative); Glucose,Urine (UA) Negative (Negative); Ketones,Urine Negative (Negative); Nitrite,Urine Negative (Negative); Protein,Urine 100 MG/DL; Urine Appearance CLOUDY (Clear); Urine Color Yellow (Yellow)
[2020-10-09 08:58] LABS: INR 1.4; PT Patient Result 15.2 SECS (10.5-12.0); Partial Thromboplastin Time 29.7 SECS (23.9-33.8)
[2020-10-09 08:58] LABS: Albumin 1.6 G/DL (3.4-5.0); Bilirubin,Total 1.5 MG/DL (0.20-1.00); Calcium 7.7 MG/DL (8.5-10.1); Osmolality,Calculated 293.7 MOS/KG (273-304); Potassium 3.6 MMOL/L (3.5-5.1); Total Protein 5.5 G/DL (6.4-8.2)
[2020-10-09 09:02] LABS: Hypochromasia 1+; Lymphocytes 5 % (20-55); Microcytosis 1+; Nucleated Red Blood Cells 1 (0-5); Platelet Estimate Decreased; Segmented Neutrophils 92 % (50-85); Total Cells Counted 100
[2020-10-09] MEDS ORDERED: HYDROmorphone 2 MG/1 ML VIAL IV PRN (09:49)
[2020-10-09] MEDS ORDERED: LACTATED RINGERS 1,000 ML IV ONE (10:15)
[2020-10-09] MEDS ORDERED: MIDAZOLAM 100 MG in SODIUM CHLORIDE 0.9% 80 ML IV PRN (10:16)
[2020-10-09] MEDS ORDERED: fentaNYL INJ 1,250 MCG in SODIUM CHLORIDE 0.9% 225 ML IV PRN (10:16)
[2020-10-09] MEDS ORDERED: cefTRIAXone 1,000 MG in SODIUM CHLORIDE 0.9% 100 ML IV SCH (11:00)
[2020-10-09] MEDS: IVERMECTIN 3 MG TABLET PO SCH (11:07)
[2020-10-09] MEDS: FAMOTIDINE 20 MG TABLET PO SCH (11:13)
[2020-10-09] MEDS: ASCORBIC ACID 500 MG TABLET PO SCH (11:35)
[2020-10-09] MEDS: DOCUSATE SODIUM 100 MG CAPSULE PO SCH (11:35)
[2020-10-09] MEDS: ZINC GLUCONATE 50 MG TABLET PO SCH (11:35)
[2020-10-09] MEDS: CHOLECALCIFEROL 5,000 UNIT TABLET PO SCH (11:35)
[2020-10-09] MEDS: CETIRIZINE 10 MG TABLET PO SCH (11:35)
[2020-10-09] MEDS: MULTIVITAMIN (PRENATAL) TABLET PO SCH (11:35)
[2020-10-09] MEDS ORDERED: VANCOMYCIN INJ 1,000 MG in SODIUM CHLORIDE 0.9% 250 ML IV SCH (12:00)
[2020-10-09] MEDS: PHENYLEPHRINE DRIP 40 MG/250 ML PREMIX IV PRN ×2 (12:30→15:54)
[2020-10-09 13:42] LABS: ABG HCO3 14.8 MMOL/L (20-26); ABG Oxygen Saturation 88.6 % (95-100); ABG PO2 86.6 MM HG (80-95); ABG TCO2 17.9 MMOL/L (23-27); Glucose Heart Surgery 134 MG/DL (74-106); Hematocrit Heart Surgery 22.9 PERCENT (37-47); Hemoglobin Heart Surgery 7.3 G/DL (12.0-16.0); Potassium Heart/CVR 4.9 MMOL/L (3.5-5.1)
[2020-10-09 13:43] LABS: ABG PH 7.071 (7.35-7.45)
[2020-10-09] MEDS: AZITHROMYCIN 250 MG TABLET PO SCH (13:53)
[2020-10-09] MEDS ORDERED: SODIUM BICARBONATE 50 MEQ/50 ML VIAL IV ONE (13:55)
[2020-10-09] MEDS ORDERED: SODIUM CHLORIDE 0.9% 1,000 ML IV PRN (14:00)
[2020-10-09] MEDS ORDERED: methylPREDNISolone SOD SUC 40 MG/1 ML VIAL IV SCH (14:30)
[2020-10-09] MEDS ORDERED: SODIUM BICARB INJ 150 MEQ in DEXTROSE 5% 1,000 ML IV SCH (15:00)
[2020-10-09] MEDS ORDERED: DIGOXIN 0.5 MG/2 ML AMP IV ONE ×2 (15:49→21:49)
[2020-10-09] MEDS ORDERED: PHENYLEPHRINE INJ 160 MG in SODIUM CHLORIDE 0.9% 234 ML IV PRN (15:54)
[2020-10-09 16:35] VITALS: BP 123/76
[2020-10-09] MEDS ORDERED: NOREPINEPHRINE 16 MG in SODIUM CHLORIDE 0.9% 234 ML IV PRN (18:00)
[2020-10-09] MEDS ORDERED: ATROPINE 1 MG/10 ML SYRINGE ONE (18:04)
[2020-10-10 23:01] LABS: Fungitell Quantitative Value 74 pg/mL (<60 pg/mL)
== END 2020-10-09 18:24 | disposition expired | DRG 540 ==
LOC: N.LDOUT 21:24 → N.LD 21:27 → N.ICU 10-06 09:09
PROVIDERS: ADMIT Obstetrics & Gynecology; ATTEND Obstetrics & Gynecology
PROC: LDCSECT (ICD-10-PCS; 2020-10-06 07:30)